=== PATIENT | female | born 1960 | race Caucasian/White ===

== ENCOUNTER 2023-03-24 13:20 | Emergency (ER) | payer OTHER ==
[2023-03-24 13:39] VITALS: BP 123/91; PULSE 94; RESP 18; TEMP 98.9; BMI 24.6
[2023-03-24 16:20] LABS: EPI CELLS >36 /uL (0-25.1); HYALINE CASTS 42 /uL (0-3.1); PH,URINE 5.5 (5.0-8.0); URINE APPEARANCE CLOUDY; URINE BILIRUBIN 1+ (NEGATIVE); URINE COLOR ORANGE; URINE GLUCOSE (UA) NEGATIVE (NEGATIVE); URINE KETONE TRACE (NEGATIVE); URINE LEUK ESTERASE 1+ (NEGATIVE); URINE NITRITE POSITIVE (NEGATIVE); URINE PROTEIN 2+ (NEGATIVE); URINE RBC 14 /uL (0-23.9); URINE WBC 84 /uL (0-25.8)
[2023-03-24 22:47] LABS: URINE BACTERIA 1.9 /uL (0-1359)
== END 2023-03-24 17:00 | disposition home or self-care (01) ==
LOC: JER 13:20
DX: N39.0 Urinary tract infection, site not specified (principal); R50.9 Fever, unspecified; Z20.822 Contact with and (suspected) exposure to COVID-19
CPT/HCPCS: 0241U-QW; 71046-TC-FY; 81003; 87086; 99284-25